=== PATIENT | male | born 1975 | race Caucasian/White ===

== ENCOUNTER 2017-11-21 18:20 | Emergency (ER) | payer SELFPAY ==
[~2017-11-21] VITALS: Ht 182.9 cm; Wt 99.7 kg
[~2017-11-21 18:20] MED LIST: KLONOPIN1 MG PO; MECLIZINE HCL12.5 M1 PO; MOTRIN800 MG PO; NORCO 5/3251 TABLET PO; PAXIL30 MG PO; ZITHROMAX250 MG PO; ZOFRAN4 MG PO
[2017-11-21] MEDS ORDERED: FLEXERIL10 MG PO (20:56)
[2017-11-21] MEDS ORDERED: NAPROSYN500 MG PO (20:56)
[2017-11-21 21:13] VITALS: BP 148/88
== END 2017-11-21 21:14 | disposition home or self-care (01) ==
LOC: EXP 18:20 → EME 18:20 → EXP 21:14
DX: S46.911A Strain of unspecified muscle, fascia and tendon at shoulder and upper arm level, right arm, initial encounter (principal); W01.0XXA Fall on same level from slipping, tripping and stumbling without subsequent striking against object, initial encounter; Y92.812 Truck as the place of occurrence of the external cause; F17.200 Nicotine dependence, unspecified, uncomplicated
CPT/HCPCS: 73030; 73080; 99281; 99284